=== PATIENT | female | born 1985 | race Caucasian/White ===

== ENCOUNTER 2017-04-22 09:09 | Emergency (ER) | payer BC ==
[2017-04-22] MEDS ORDERED: Sodium Chloride 0.9% 1,000 ML IV SCH (09:45)
[2017-04-22 10:34] VITALS: BP 120/54
--- NOTE | 2017-04-26 08:43 | ER ---
DATE SEEN: 04/22/2017 TIME SEEN: The patient was seen at 0915 hours. HISTORY OF PRESENT ILLNESS: Gia is a 31-year-old, 3, para 2-0-0-2, 16-week , uncomplicated, felt dizzy and lightheaded at 0200 hours this morning when she got up. No fever. No chills. No cough. No frequency, urgency, or dysuria. No urinary tract infection, kidney stones, hypertension, preeclampsia, or unusual last pregnancies. No history of bleeding. The patient is accompanied by her . PAST MEDICAL HISTORY: 39-week gestation, uncomplicated , vaginal delivery. No complications. REVIEW OF SYSTEMS: Negative otherwise today. PHYSICAL EXAMINATION: VITAL SIGNS: 97.7 temperature, 100% oxygen saturation, heart rate 70, and blood pressure 120/54. GENERAL: A very pleasant woman in minimal distress. She appears slightly tired. She is accompanied by her . HEENT: PERRLA intact. Pharynx without abnormality. Moist mucosa. NECK: No bruits. No thyromegaly or masses. LUNGS: Without rales, rhonchi, or wheezes. HEART: S1, S2. No irregular rate and rhythm. ABDOMEN: Soft. No guarding. No abdominal discomfort. Uterus palpable and quick-look ultrasound demonstrates anterior placenta, which extends to the anterior wall of the uterus, extends down to the os, but not over the os. No evidence for separation. Fetus noted in breech position. heart rate demonstrated. No abnormalities noted. No congenital abnormalities noted. EXTREMITIES: Without edema. Deep tendon reflexes are present in upper and lower extremities. NEUROLOGIC: Cranial nerves 2 through 12 intact. Gait intact. Feels not lightheaded, but a little uncomfortable when standing. DISCUSSION: 1. Under hydration with . 2. Shades of hyperemesis gravidarum-nausea with , first trimester . No evidence for hyperemesis gravidarum. The urine is not back. LABORATORY FINDINGS: No anemia. No abnormality of white count. No metabolic abnormalities of significance. Mildly low glucose approximately 76 to 79. ASSESSMENT: 1. Early . 2. Nausea and upset stomach with , first trimester. 3. No evidence for hyperemesis gravidarum. 4. 3, para 2-0-0-2, 16 weeks' gestation with intact placental unit. No evidence of placental separation or vaginal bleed. 5. The patient is stable. 6. Probably mildly under hydrated. PLAN: The patient was given a 1000 mL of normal saline flush, felt slightly better. She is not dizzy when she gets up and walks around. No tachycardia. Reassured. Follow up with a doctor in usual appointments, otherwise earlier if worse. She is to drink at least 2 L of fluid a day (2 quarts of fluid a day). /[id number] GISSELLE/KIM
== END 2017-04-22 10:51 | disposition home or self-care (01) ==
LOC: FB.ED 09:09
DX: O99.612 Diseases of the digestive system complicating pregnancy, second trimester (principal); K30 Functional dyspepsia; O99.89 Other specified diseases and conditions complicating pregnancy, childbirth and the puerperium; R11.0 Nausea; Z3A.16 16 weeks gestation of pregnancy
CPT/HCPCS: 36415; 80053; 81001; 85025; 96360; 99283; J7040; J7030

== ENCOUNTER 2019-07-09 15:21 | Emergency (ER) | payer BC, OTHER ==
[2019-07-09] MEDS ORDERED: cefTRIAXone 1 GM Vial IM ONE (16:01)
[2019-07-09] MEDS ORDERED: Ketorolac 60 MG/2 ML SDV IM ONE (16:05)
--- NOTE | 2019-07-09 16:15 | EDM.PDOC ---
ED HPI GENERAL MEDICAL PROBLEM - General Chief Complaint: ENT Problem Stated Complaint: SORETHROAT SWELLING Time Seen by Provider: 07/09/19 15:35 Source of Information: Reports: Patient History Limitations: Reports: No Limitations - History of Present Illness INITIAL COMMENTS - FREE TEXT/NARRATIVE: sore throat and body aches since yesterday seen virtual clinic today an started on amoxicillin states she vomited after wards ( an 1.5hr later) not able to swallow , throat is swollen Onset: Gradual Onset Date: 07/08/19 Duration: Day(s): (2), Getting Worse Location: Reports: Face, Generalized Quality: Reports: Ache, Burning (throat) Improves with: Reports: None Worsens with: Reports: Eating, Movement Associated Symptoms: Reports: Fever/Chills, Headaches, Loss of Appetite, Malaise , Nausea/Vomiting. Denies: Cough Throat Pain Score (Numeric/FACES): 8 - Related Data Allergies Allergy/AdvReac Type Severity Reaction Status Date / Time hydrogen peroxide Allergy Rash Verified 07/09/19 15:27 Home Meds: Home Meds Amoxicillin [Amoxil] 250 mg TID 07/09/19 [History] Naproxen Sodium [Naproxen Sodium ER] 500 mg PO BID #30 tablet.er 07/09/19 [Rx] Penicillin V Potassium 500 mg PO Q8HR #30 tab 07/09/19 [Rx] Past Medical History [employer] History: Reports: Other T[employer]TAIN History: Para 3 3 Musculoskeletal History: Reports: Fracture Other Musculoskeletal History: hx fx nose - Infectious Disease History Infectious Disease History: Reports: Chicken Pox - Past Surgical History Head Surgeries/Procedures: Reports: None HEENT Surgical History: Reports: Myringotomy w Tube(s), Naso-Sinus Surgery, Oral Surgery Other HEENT Surgeries/Procedures: bilat tubes in ears Musculoskeletal Surgical History: Reports: None Social & Family History - Family History Family Medical History: Noncontributory - Tobacco Use Smoking Status *Q: Never Smoker - Caffeine Use Caffeine Use: Reports: Soda - Alcohol Use Days Per Week of Alcohol Use: 3 Number of Drinks Per Day: 2 Total Drinks Per Week: 6 - Recreational Drug Use Recreational Drug Use: No ED ROS ENT - Review of Systems Review Of Systems: Comprehensive ROS is negative, except as noted in HPI. Constitutional: Reports: Chills, Malaise, Weakness, Fatigue HEENT: Reports: Ear Pain, Throat Pain, Throat Swelling. Denies: Eye Discharge, Eye Pain Respiratory: Reports: No Symptoms. Denies: Shortness of Breath, Cough Cardiovascular: Reports: No Symptoms Endocrine: Reports: Fatigue GI/Abdominal: Reports: Anorexia, Decreased Appetite, Difficulty Swallowing, Vomiting : Reports: No Symptoms Musculoskeletal: Reports: Muscle Pain Skin: Reports: No Symptoms Neurological: Reports: No Symptoms Psychiatric: Reports: No Symptoms Hematologic/Lymphatic: Reports: No Symptoms ED EXAM, ENT - Physical Exam Exam: See Below Exam Limited By: No Limitations General Appearance: Alert, WD/WN, Other (ill looking) Eye Exam: Bilateral Eye: EOMI Ears: Normal External Exam Nose: Normal Inspection Mouth/Throat: Hoarse Voice, Pharyngeal Erythema, Throat Swelling, Tonsillar Erythema, Tonsillar Exudates, Tonsillar Swelling Head: Normocephalic Neck: Supple, Lymphadenopathy (R), Lymphadenopathy (L) Respiratory/Chest: Lungs Clear, Normal Breath Sounds Cardiovascular: Normal Peripheral Pulses, Regular Rate, Rhythm Back: Full Range of Motion Extremities: Normal Range of Motion Neurological: Alert, Oriented, CN II-XII Intact Lymphatic: Adenopathy (bilateral anterior lymph nodes) Course - Vital Signs Last Recorded V/S: Last Vital Signs Temp 37.0 C 07/09/19 15:21 Pulse 110 H 07/09/19 15:21 Resp 20 07/09/19 15:21 BP 144/94 H 07/09/19 15:21 Pulse Ox 99 07/09/19 15:21 - Orders/Labs/Meds Meds: Medications Discontinued Medications Generic Name Dose Route Start Last Admin Trade Name Rodolfo PRN Reason Stop Dose Admin Ceftriaxone Sodium 1 gm 07/09/19 16:01 07/09/19 16:53 Rocephin IM 07/09/19 16:02 1 gm ONETIME ONE Administration Ketorolac Tromethamine 60 mg 07/09/19 16:05 07/09/19 16:53 Toradol IM 07/09/19 16:06 60 mg ONETIME ONE Administration - Re-Assessments/Exams Free Text/Narrative Re-Assessment/Exam: 07/09/19 16:23 lab positive for Rapid strep screen pt given toradol and rocephin Departure - Departure Time of Disposition: 17:15 Disposition: Home, Self-Care 01 Condition: Fair Clinical Impression: Acute streptococcal pharyngitis - Discharge Information *PRESCRIPTION DRUG MONITORING PROGRAM REVIEWED*: Not Applicable *COPY OF PRESCRIPTION DRUG MONITORING REPORT IN PATIENT LAWANDA: Not Applicable Prescriptions: Penicillin V Potassium 500 mg PO Q8HR #30 tab Naproxen Sodium [Naproxen Sodium ER] 500 mg PO BID #30 tablet.er Instructions: Ketorolac injection, Ceftriaxone injection, Strep Throat, Easy-to -Read Referrals: PCP,None [Primary Care Provider] - Forms: ED Department Discharge Additional Instructions: Activity as tolerated. Increase fluids. Tylenol or Naproxen as needed for pain. Pen V K 500mg every 8 hours until gone. Follow up with regular MD at clinic as needed or if not improving after 48-72 hours. Sepsis Event Note - Evaluation Sepsis Screening Result: No Definite Risk - Focused Exam Vital Signs: Vital Signs Temp Pulse Resp BP Pulse Ox 07/09/19 15:21 37.0 C 110 H 20 144/94 H 99 Date Exam was Performed: 07/09/19 Time Exam was Performed: 17:16
[2019-07-09 17:58] VITALS: BP 133/89; PULSE 115
== END 2019-07-09 17:28 | disposition home or self-care (01) ==
LOC: FB.ED 15:21
DX: J02.0 Streptococcal pharyngitis (principal); Z88.1 Allergy status to other antibiotic agents; Z79.899 Other long term (current) drug therapy; Z88.8 Allergy status to other drugs, medicaments and biological substances
CPT/HCPCS: 87880-QW; 96372; 99283; J0696; J1885